=== PATIENT | female | born 1995 | race Caucasian/White ===

== ENCOUNTER 2016-04-24 09:43 | Emergency (ER) | payer OTHER ==
[~2016-04-24] VITALS: Ht 157.5 cm; Wt 59.4 kg
[2016-04-24] MEDS ORDERED: birth control pill ORAL (09:54)
[2016-04-24] MEDS ORDERED: AMOXICILLIN500 MG ORAL (09:54)
[2016-04-24] MEDS ORDERED: ACETAMINOPHEN-1 EAC1 ORAL (09:54)
[2016-04-24 10:01] VITALS: BP 136/63
--- NOTE | 2016-04-24 10:19 | Emergency Room Report ---
History of Present Illness General Chief Complaint: Laceration Source: Patient Present Illness HPI Patient is [id number] female presents with laceration to the right thumb Essentially cut the area on a metal bar at work The bleeding was controlled well with some pressure Patient has up-to-date tetanus shot Discomfort to the area as 3/10 worse with touch Denies any wrist pain denies any elbow pain Allergies: Coded Allergies: No Known Allergies (Unverified , 04/24/16) Patient History Past Medical History: see triage record Pertinent Family History: none Last Menstrual Period: 4 weeks ago Reviewed Nursing Documentation: PMH: Agreed, PSxH: Agreed Nursing Documentation-PM Past Medical History: No Stated History Review of Systems All Other Systems: negative except mentioned in HPI Physical Exam Vital Signs Date Time Temp Pulse Resp B/P Pulse Ox O2 Delivery O2 Flow Rate FiO2 04/24/16 09:48 99.3 98 16 136/63 99 Room Air Sp02 EP Interpretation: reviewed, normal General Appearance: well appearing, no apparent distress Head: normocephalic, atraumatic ENT: normal pharynx Neck: full range of motion, supple Musculoskeletal: other - Patient is approximately one half centimeter laceration, on the dorsal aspect of the thumb, the distal aspect which is approximately half a centimeter, appears to go through the dermis, the remaining is fairly superficial Neurologic: alert, oriented x3, responsive Skin: other - as noted above Procedures Splinting Progress Foam splint was applied to the right thumb It does immobilize the thumb well Patient remains neurovascularly intact on recheck by myself Laceration/Wound Repair Progress After cleansing an irrigating the area The 1/2 centimeter laceration on the distal aspect part Was provided with Dermabond this provided appropriate wound approximation On top of this there was a Steri-Strip applied which further approximated the skin Patient remains neurovascularly intact Tolerated the procedure well Medical Decision Making Diagnostic Impression: Primary Impression: Laceration ER Course Please refer to the laceration repair as noted above patient did well and is stable for close outpatient followup Patient is up-to-date with immunizations and does not appear to require antibiotics Last Vital Signs Date Time Temp Pulse Resp B/P Pulse Ox O2 Delivery O2 Flow Rate FiO2 04/24/16 10:01 99.3 69 16 136/63 99 Room Air Status: improved Disposition: HOME, SELF-CARE Condition: Improved Additional Instructions: Patient is provided with the discharge instructions notified to follow up with primary doctor in the next 2-3 days otherwise return to the er with any worsening symptoms. ROMANA AMARO D.O. Apr 24, 2016 10:19
[2016-04-24 10:47] VITALS: BP 122/77
[2016-04-24 10:49] VITALS: BP 122/77
== END 2016-04-24 10:55 | disposition home or self-care (01) ==
LOC: EMR 10:50
DX: S61.011A Laceration without foreign body of right thumb without damage to nail, initial encounter (principal); W45.8XXA Other foreign body or object entering through skin, initial encounter; Y92.89 Other specified places as the place of occurrence of the external cause; Y99.0 Civilian activity done for income or pay